=== PATIENT | female | born 2000 | race Caucasian/White ===

== ENCOUNTER → 2020-05-11 | Outpatient (CLI) | payer OTHER | LOC: LAB 05-10 11:35 | PROVIDERS: ATTEND Hospitalist | DX: Z20.828 Contact with and (suspected) exposure to other viral communicable diseases (principal) ==

== ENCOUNTER → 2020-07-09 | Outpatient (CLI) | payer OTHER | LOC: LAB 08:41 | PROVIDERS: ATTEND Specialist | DX: U07.1 COVID-19 (principal) ==